=== PATIENT | male | born 1970 | race Asian ===

== ENCOUNTER 2018-02-25 14:13 | Emergency (ER) | payer OTHER ==
[2018-02-25 14:23] VITALS: BP 119/65; PULSE 86; TEMP 97.7; BMI 30.7
--- NOTE | 2018-02-25 14:49 | PDOC ---
History of Present Illness - General Chief Complaint: Syncope/Near Syncope Stated Complaint: INJURY Time Seen by Provider: 02/25/18 14:21 History Source: Patient, Family - History of Present Illness Presenting Symptoms: Syncope Timing/Duration: reports: resolved prior to arrival Past History - Past Medical History Allergies/Adverse Reactions: Allergies Allergy/AdvReac Type Severity Reaction Status Date / Time No Known Allergies Allergy Verified 02/25/18 14:19 - Suicide/Smoking/Psychosocial Hx Smoking History: Unknown if ever smoked Review of Systems - Review of Systems Constitutional: No: Chills, Fever Respiratory: No: Cough Cardiac (ROS): Yes: Syncope. No: Chest Pain, Palpitations ABD/GI: No: Nausea, Vomiting, Abdominal cramping : No: Burning, Discharge, Flank Pain, Hematuria Musculoskeletal: Yes: Back Pain *Physical Exam - Vital Signs Last Vital Signs Temp Pulse Resp BP Pulse Ox 97.7 F 86 17 119/65 100 02/25/18 14:21 02/25/18 14:21 02/25/18 14:21 02/25/18 14:21 02/25/18 14:21 - Physical Exam General Appearance: Yes: Appropriately Dressed. No: Apparent Distress HEENT: positive: Normal Voice Neck: positive: Supple Respiratory/Chest: positive: Lungs Clear, Normal Breath Sounds. negative: Respiratory Distress Cardiovascular: positive: Regular Rate, S1, S2 Gastrointestinal/Abdominal: positive: Soft. negative: Tender Extremity: positive: Normal Inspection Integumentary: positive: Dry, Warm Neurologic: positive: Fully Oriented, Alert, Normal Mood/Affect, Motor Strength 5/5, Finger to Nose. negative: Facial Droop, Disoriented ED Treatment Course - RADIOLOGY Radiology Studies Ordered: Category Date Time Status CHEST X-RAY PORTABLE* [RAD] Stat Radiology 02/25/18 14:28 Ordered Medical Decision Making - Medical Decision Making 02/25/18 14:34 47-year-old male, endorses history of recurrent back pain only, here with syncope. Patient states he woke up at 1 AM today in his usual state of health and went to work. Several hours after returning from work, developed his usual mid lower back pain which resolved with a rx medication similar to motrin per pt. States he took medication on an empty stomach and had some mild upper abdominal pain after wards that resolved on its own. States he remembers standing up and calling a family member and the next thing he remembers is waking up on the floor. States he was able to call his who came upstairs and helped him up off the floor. States have a blood sugar monitor and checked pt's finger stick which was in the 200s. Did eat a slice of apple pie this am. No h/o DM. No dizziness, chest pain, shortness of breath, headache, usual changes or focal weakness. No h/o similar event. No recent cardiac w/u See exam Syncope R/o cardiac, less likely PE or TIA/CVA, no known seizures, not on blood thinners and no recent head injury, r/o orthostasis -ekg -cxr -labs -anticipate admission 02/25/18 14:51 Pt declining any further workup in ED. Of note, EKG unremarkable as reviewed w / ED attg. Pt states he feels well and wants to go home. States his forced him to come to the ED. I had lengthy conversation with patient, informing patient that we do not know why he passed out and that we want to admit him for further workup especially to rule out cardiac causes. Patient verbalized understanding and appears to have capacity at this time. Patient aware that he can return to ER at any point to continue workup. Pt and son signed AMA form. ED attg made aware 02/25/18 15:05 *DC/Admit/Observation/Transfer Diagnosis at time of Disposition: Syncope Qualifiers: Syncope type: unspecified Qualified Code(s): R55 - Syncope and collapse - Discharge Dispostion Disposition: AGAINST MEDICAL ADVICE - Referrals Referrals: Zack Zhou MD [Primary Care Provider] - - Patient Instructions Printed Discharge Instructions: DI for Syncope in Adults (Fainting) Additional Instructions: You have left AGAINST MEDICAL ADVICE and refused further testing and admission today. Please be aware that you can return to our ER at any time to continue workup. Otherwise, please follow-up with your PMD on Thursday - Post Discharge Activity
--- NOTE | 2018-02-26 10:02 | EKG ---
Test Reason : Blood Pressure : / mmHG Vent. Rate : 072 BPM Atrial Rate : 072 BPM P-R Int : 140 ms QRS Dur : 090 ms QT Int : 384 ms P-R-T Axes : 031 050 037 degrees QTc Int : 420 ms NORMAL SINUS RHYTHM WITH SINUS ARRHYTHMIA NO PREVIOUS ECGS AVAILABLE Confirmed by GABRIEL MCLEAN MD ([id number]) on 02/26/2018 10:02:36 AM Referred By: Confirmed By:GABRIEL MCLEAN MD
== END 2018-02-25 15:01 | disposition left against medical advice (07) ==
LOC: JER 14:13
DX: R55 Syncope and collapse (principal)
CPT/HCPCS: 93005; 93010; 99281-25